=== PATIENT | female | born 1950 | race Caucasian/White ===

== ENCOUNTER 2016-10-25 19:12 | Emergency (ER) | payer MEDICARE, BC ==
[2016-10-25 19:46] VITALS: BP 164/63
[2016-10-25] MEDS ORDERED: Cephalexin CAP* 500 MG PO ONE (20:05)
--- NOTE | 2016-10-25 20:18 | UC ---
Skin Complaint HPI - HPI Summary HPI Summary: multiple ground bee stings to left ankle about a week ago many of the stings form bullae and some have ruptured no f/c - History of Current Complaint Chief Complaint: UCSkin Time Seen by Provider: 10/25/16 19:55 Stated Complaint: skin complaint Hx Obtained From: Patient Onset/Duration: Sudden Onset, Lasting Days Timing: Constant Onset Severity: Severe Current Severity: Mild Pain Intensity: 2 Pain Scale Used: 0-10 Numeric Character: Swelling, Redness, Raised, Painful Aggravating: Nothing Associated Signs & Symptoms: Positive: Drainage - serous, Tenderness - Allergy/Home Medications Allergies/Adverse Reactions: Allergies Allergy/AdvReac Type Severity Reaction Status Date / Time Amoxicillin Allergy Rash Verified 10/25/16 19:47 Review of Systems Constitutional: Negative Skin: Rash Eyes: Negative ENT: Negative Respiratory: Negative Cardiovascular: Negative Gastrointestinal: Negative Genitourinary: Negative Motor: Negative Neurovascular: Negative Musculoskeletal: Negative Neurological: Negative Psychological: Negative All Other Systems Reviewed And Are Negative: Yes PMH/Surg Hx/FS Hx/Imm Hx Previously Healthy: Yes - Surgical History Surgical History: None - Family History Known Family History: Positive: Hypertension - Social History Alcohol Use: Rare Substance Use Type: None Smoking Status (MU): Never Smoked Tobacco Physical Exam Triage Information Reviewed: Yes Appearance: Well-Appearing, No Pain Distress, Well-Nourished Vital Signs: Initial Vital Signs Temp 98.7 F 10/25/16 19:42 Pulse 65 10/25/16 19:42 Resp 16 10/25/16 19:42 BP 164/63 10/25/16 19:42 Pulse Ox 99 10/25/16 19:42 Vital Signs Reviewed: Yes Eyes: Positive: Conjunctiva Clear ENT: Positive: Hearing grossly normal. Negative: Nasal congestion, Nasal drainage, Trismus, Muffled/hoarse voice Neck: Positive: Supple, Nontender Respiratory: Positive: Lungs clear, Normal breath sounds, No respiratory distress, No accessory muscle use Cardiovascular: Positive: RRR, No Murmur. Negative: Tachycardia, Bradycardia Musculoskeletal: Positive: ROM Intact Neurological: Positive: Alert Psychological Exam: Normal Course/Dx - Diagnoses Provider Diagnoses: left ankle local reaction to insect stings. ? cellulitis Discharge - Discharge Plan Condition: Stable Disposition: HOME Prescriptions: Cephalexin CAP* [Keflex CAP*] 500 mg PO TID #21 cap Patient Education Materials: Insect Bite or Sting (ED) Referrals: No Primary Care Phys,NOPCP [Primary Care Provider] - Additional Instructions: warm epsom salt soaks 2-4 x day recheck in one week if not better culture pending Images Feet (Multiple View): 1 - 5-6 bulla/some collapsed. culture obtain. mild erthema and swelling
== END 2016-10-25 20:21 | disposition home or self-care (01) ==
LOC: UCCORT 19:12
DX: T63.441A Toxic effect of venom of bees, accidental (unintentional), initial encounter (principal); Y92.9 Unspecified place or not applicable
CPT/HCPCS: 87070; 87205; 99212; A9270-GY; G0463

== ENCOUNTER 2016-11-10 09:46 | Emergency (ER) | payer BC, MEDICARE, OTHER ==
--- NOTE | 2016-11-10 11:17 | UC ---
Lower Extremity/Ankle HPI - HPI Summary HPI Summary: Pt states she was chasing her 2 1/2 yr old grandson last pm and jumped and reached to catch him and must have twisted her left knee. States she did not feel a pop of snap and was able to bear weight but this am it continued to hurt and was more swollen. She had a walker and a wheeled chair at home and used that to get around. No prior injury to that knee. 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 - Allergies/Home Medications Allergies/Adverse Reactions: Allergies Allergy/AdvReac Type Severity Reaction Status Date / Time Amoxicillin Allergy Rash Verified 11/10/16 11:00 Home Medications: Home Medications Ibuprofen TAB* [Advil TAB*] 400 mg PO ONCE PRN 11/10/16 [History Confirmed 11/10] PMH/Surg Hx/FS Hx/Imm Hx Previously Healthy: Yes - does not regularly see a doctor - Surgical History Surgical History: None - Family History Known Family History: Positive: Hypertension - Social History Lives: With Family Alcohol Use: Rare Substance Use Type: None Smoking Status (MU): Never Smoked Tobacco Review of Systems Constitutional: Negative Skin: Negative Eyes: Negative ENT: Negative Respiratory: Negative Cardiovascular: Negative Gastrointestinal: Negative Genitourinary: Negative Motor: Decreased ROM Neurovascular: Negative Musculoskeletal: Arthralgia, Decreased ROM - left knee Neurological: Negative Psychological: Negative All Other Systems Reviewed And Are Negative: Yes Physical Exam Triage Information Reviewed: Yes Appearance: Well-Appearing, Well-Nourished, Pain Distress Vital Signs: Initial Vital Signs Temp 99.8 F 11/10/16 10:52 Pulse 87 11/10/16 10:52 Resp 18 11/10/16 10:52 BP 152/65 11/10/16 10:52 Vital Signs Reviewed: Yes Eyes: Positive: Conjunctiva Clear ENT: Positive: Normal ENT inspection Neck: Positive: Supple Respiratory: Positive: No respiratory distress Cardiovascular: Positive: RRR, Pulses Normal, Brisk Capillary Refill Musculoskeletal: Positive: Strength Intact, ROM Limited @ - left knee due to swelling and pain. Ligaments stable with stress. No ankle or hip pain on left. Neurological: Positive: Alert Psychological Exam: Normal Skin Exam: Normal Lower Extremity Course/Dx - Course Course Of Treatment: xray shows left knee effusion and osteoarthritis. Have arranged follow up with Dr. Bullock today so pt may begin further evaluation and treatment. Pt advised to get established with a PCP within a month to further eval her BP. List given. - Differential Dx/Diagnosis Differential Diagnosis/HQI/PQRI: Contusion, Fracture (Closed), Sprain, Strain Provider Diagnoses: left knee pain and effusion. osteoarthritis. elevated BP without diagnosis of HTN Discharge - Discharge Plan Condition: Stable Disposition: HOME Patient Education Materials: Swollen Knee Joint (ED) Referrals: [facility] [place] [facility]FERR[facility] [Outside] Mingo Bullock MD [Medical Doctor] - (Dr. Chavez made an appointment for you with Dr. Bullock for 2:30pm today. ) No Primary Care Phys,NOPCP [Primary Care Provider] - Additional Instructions: You were given ibuprofen 600mg today at 11:30am. Continue to use the walker that you have as needed, and wrap your knee with the romy bandage. Dr. Bullock, the orthopedist, will see you today at 2:30pm. Return to urgent care if you have any new or worsening symptoms.
[2016-11-10] MEDS ORDERED: Ibuprofen TAB* 600 MG PO ONE (11:25)
--- NOTE | 2016-11-10 12:06 | RAD ---
HISTORY: Twisting injury, pain COMPARISONS: None VIEWS: 4, Frontal, lateral, axial, and oblique views of the left knee FINDINGS: BONE DENSITY: Normal. BONES: There is no displaced fracture. JOINTS: There is mild tricompartmental osteoarthritis. There is a moderate suprapatellar joint effusion. There is no lipohemarthrosis. ALIGNMENT: There is no dislocation. SOFT TISSUES: Unremarkable. OTHER FINDINGS: None. IMPRESSION: 1. OSTEOARTHRITIS. 2. JOINT EFFUSION. 3. NO ACUTE OSSEOUS INJURY. IF SYMPTOMS PERSIST, RECOMMEND REPEAT IMAGING.
[2016-11-10 12:49] VITALS: BP 155/68
== END 2016-11-10 13:21 | disposition home or self-care (01) ==
LOC: UCCORT 09:46
DX: M25.562 Pain in left knee (principal); M25.462 Effusion, left knee; M17.12 Unilateral primary osteoarthritis, left knee; R03.0 Elevated blood-pressure reading, without diagnosis of hypertension; Z88.1 Allergy status to other antibiotic agents
CPT/HCPCS: 99212; A9270-GY; G0463